=== PATIENT | female | born 1985 | race African-American/Black ===

== ENCOUNTER 2025-01-05 07:45 | Outpatient (AMB) | payer OTHER, SELFPAY ==
--- OUTSIDE RECORDS SUMMARY | 2024-12-04 08:00 | XMS_ITS ---
Author Organization [facility] Address [address] [place] [address] Care Team Providers Care Segment Assembler Name Role Phone Provider, [place] Primary Care Provider REASON FOR VISIT Headache, panic attack Encounters Encounter Location Date Provider Diagnosis [facility] [address] [place] [address] 12/04/2024 [facility] Provider Plan Of Treatment No Information Progress Notes * CARMENNga GILBERTDOB:[birth year] (39 yo F)Acc No.[id number]:12/04/2024 IMPORT Patient: Nga JORDAN Appointment Provider: Daniel byrne Provider :1985 A ge:39 Y S ex:Female Date:12/04/2024 Address:[address] [place], [place] [id number] Subjective: * Chief Complaints: * 1 . Headache, panic attack . * Medical History: Objective: * Vitals: Assessment: Plan: * Treatment: * Billing Information: * Visit Code: * Procedure Codes: * Electronic signature of Yumiko x Provider on 01/05/2025 at 07:48 AM EST Sign off status: Pending * Appointment Provider: Daniel byrne Provider Date: Generated for Ahsan osullivan/Ailyn/Tamikaitting on: 03/07/2024 07:48 AM EST
--- OUTSIDE RECORDS SUMMARY | 2025-01-05 07:48 | XMS_ITS | Patient Health Record ---
Author Organization [facility] Address [address] [place] [address] Care Team Providers Care Railway Head Tender Name Role Phone Provider, [facility] Primary Care Provider Reason For Referral No Information Plan Of Treatment No Information
--- OUTSIDE RECORDS SUMMARY | 2025-01-05 07:48 | XMS_ITS | Data Portability ---
Author Organization [place] [facility] [address] [place] [address] Assessment No assessment recorded. Plan of Treatment Reminders Order Date Submit Date Provider Last Modified By Organization Details Last Modified Time Details Appointments None recorded. Lab None recorded. Referral orthopedic foot/ankle surgeon referral 2021 [email or web address] Not available 08:53:10 Procedures None recorded. Surgeries None recorded. Imaging None recorded. Medication Orders None recorded. Patient TargetsNo targets recorded. Patient Instructions Encounter Date Encounter Id Patient Instructions Last Modified By Organization Details Last Modified Time 02/01/2022 [id number] learning about rice (rest, ice, compression, and elevation) [email or web address] Not available 02/01/2022 11:51:24 Reason for Referral Orthopedic Foot/ankle Surgeo n Referral for Sprain of right ankle Referring Physician: Juan Owen, Urgent Care, Encounter Date: 02/01/2022 Problems Name Problem SNOMED Code Status Onset Date Resolution Date Notes Provider Name and Address Organization Details Recorded Time Post-traum atic stress disorder 02747688 Active BEAU DRINKWINE null, [place] - [facility] 11:26:15 Anxiety 82125926 Active BEAU DRINKWINE null, [place] - [facility] 11:26:23 Problem Notes None recorded. Procedures Surgical History Date Name Laterality Status Provider Name and Address Organization Details Recorded Time 02/15/19 16 cholecystectomy completed BEAU DRINKWINE [place] - [facility] 02/01/2022 11:27:13 02/15/19 16 removal of product of conception of ectopic completed BEAU DRINKNILSE [place] - [facility] 02/01/2022 11:27:35 Imaging Results None recorded. Procedure Notes None recorded. Medical Equipment None Reported. Allergies Allergen ID Allergen Name Allergen Category Reaction Reaction Severity Criticality Documentation Date Start Date Code Code System Note Provider Name and Address Organization Details Recorded Time 06032 acetamino phen / oxycodone medicatio n hives itching Not available Not available Not available 02/01/2022 93485 3 RxNorm BEAU DRINKWINE null, [place] - [facility] 2 11:24:57 89951 egg extract food,medi cation facial swelling itching Not available Not available Not available 02/01/2022 08056 15 RxNorm BEAU DRINKWINE null, [place] - [facility] 2 11:25:12 50399 morphine medicatio n itching rash Not available Not available Not available 02/01/2022 7052 RxNorm BEAU DRINKWINE null, [place] - [facility] 2 11:25:32 Medications Not known to be on any medication Vitals Date Recorded Body height Body mass index (BMI) Body weight Pain severity - 0-10 verbal numeric rating [Score] - Reported Body temperature Respiratory rate Heart rate Oxygen saturation Systolic And Diastolic Provider Name and Address Organization Details Last Updated DateTime 2 157.48 cm 34.8 kg/m2 80407.5 5 g 5 98.7 [degF] 16 /min 106 /min 100 % 134/82 mm[Hg] BEAU DRINKWINE [place] - [facility] 2 11:32:31 Social History Question Answer Notes LastModified by [employer] Details LastModified Time Tobacco Smoking Status Current Every Day Smoker BEAU DRINKNILSE null, [place] - [facility] 02/01/2022 11:28:53 Have You Recently Traveled Abroad? No Information not available 02/01/2022 Sex: Unknown Functional Status Question Answer Note LastModified by [employer] Details LastModified Time Do you use any illicit or recreational drugs? No Information not available 02/01/2022 Do you or have you ever used any other forms of tobacco or nicotine? No Information not available 02/01/2022 Mental Status None recorded. Family History Relationship Description Onset Age of this Age Resolved Age Notes LastModified by Organization Details LastModified Time Father No current problems or disability [email or web address] Not available 01/15 11:26:48 Mother No current problems or disability [email or web address] Not available 01/15 11:26:48 Medical History No medical history recorded. Gynecological HistoryNo gynecological history recorded. Obstetrics History GPAL:G 0 P 0 0 0 0 Immunizations Vaccine Type Date Status Note Provider Nam e and Address Organization Details Recorded Time Tdap 7 completed BEAU DRINKWINE null, [place] - [facility] 02/01/2022 11:24:07 Influenza, split virus, quadrivalent, preservative 7 completed BEAU DRINKWINE null, [place] - [facility] 02/01/2022 11:24:07 Influenza, split virus, trivalent, preservative 1 completed BEAU DRINKWINE null, [place] - [facility] 02/01/2022 11:24:07 Past Encounters Encounter ID Performer Location Encounter Start Date Encounter Closed Date Diagnosis/Indication Diagnosis SNOMED-CT Code Diagnosis ICD10 Code Diagnosis IMO Codes Diagnosis Note [id number] [address] [address] [place] [address] 07/28/2021 12:01:45 07/28/2021 14:41:52 [id number] [address] [facility] [address] [place] [phone] 05/08/2021 14:10:08 05/08/2021 15:59:26 [id number] Juan Owen, DO [address] [place] [address] 02/01/2022 08:44:53 02/01/2022 11:53:07 Sprain of right ankle [id number] 4848177 S93.401A resticeele vationcomp ression with BARB bandageibu (she has at home)No weight bearing x 2 dunable to image here as no XRAYadvise d to go to [facility] clinic at [facility] tomorrow for a formal evaluation and imaging Health Concerns Section Related Observation LastModified by Organization Detai ls LastModified Time None Recorded Concern Status LastModified by Organization Details LastModified Time None Recorded Advance Directives Directive None Recorded Payers Insurance Date Sequence Insurance Name Policy Number Policy Donahue Covered Member ID Donahue Member ID Guarantor Name 02/01/2022 1 [facility] (MEDICAID REPLACEMENT - HMO) [id number] Nga Kaiser [id number] Nga Kaiser 02/01/2022 1 [facility] (MEDICAID REPLACEMENT - HMO) [id number] Nga Kaiser [id number] Nga Kaiser 02/01/2022 1 MEDICAID-[place]: [facility] Nga Kaiser [id number] Nga Kaiser Notes Date Note Type Note Provider Name and Address Organization Details Recorded Time 02/01/2022 text/html ROS as noted in the HPI 36 yo femaleRolled right ankle 4 days ago, shooting pain since. + swellingno rednessno rashno bruisingno numbnessno tinglingno weakness+ pain with ambulation tried ibu 800 mg and elevationstill has pain Juan Owen, DO [address] [place], [address], [place] [facility] 02/01/2022 11:56:49 OBGyn Episode No OBEpisode recorded.
--- OUTSIDE RECORDS SUMMARY | 2025-01-05 07:48 | XMS_ITS | Clinical Summary ---
Author Organization [facility] ity Address [address] [place] [address] Care Team Providers Care Trust Vault Custodian Name Role Phone Unavailable Primary Care Provider Unavailabl e Social History Tobacco Use Types Packs/Day Years Used Date Smoking Tobacco: Never Assessed Comments Unknown Sex and Gender Information Value Date Recorded Sex Assigned at Not on file Legal Sex Female 11:58 PM EST Gender Identity Not on file Sexual Orientation Not on file Plan of Treatment Health Maintenance Due Date Last Done Comments Breast Cancer Screening 1983 DTaP,Tdap,and Td Vaccines (1 - Tdap) 2002 Hepatitis B Vaccines (1 of 3 - 19+ 3-dose series) 2002 Cervical Cancer Screening: P ap Smear 2004 HPV Vaccines (1 - 3-dose SCD M series) 2010 Depression Screening 02/16/2024 COVID-19 Vaccine ( - 2024-2 6 season) 2024 Influenza Vaccine (#1) 2024 RSV Immunization Adult Patie nts (1 - 1-dose 75+ series) 2058 HIB Vaccines Aged Out No longer eligi ble based on patient's age to complete this topic Hepatitis A Vaccines Aged Out No long er eligible based on patient's age to complete this topic IPV Vaccines Aged Out No longer eligi ble based on patient's age to complete this topic MMR Vaccines Aged Out No longer eligi ble based on patient's age to complete this topic Meningococcal ACWY Vaccine Aged Out N o longer eligible based on patient's age to complete this topic Meningococcal B Vaccine Aged Out No l onger eligible based on patient's age to complete this topic Pneumococcal Vaccine: Pediat rics (0 to 5 Years) and At-Risk Patients (6 to 49 Years) Aged Out No longer eligible b ased on patient's age to complete this topic RSV Immunization Patients Un manuelito 20 months Aged Out No longer eligible b ased on patient's age to complete this topic Varicella Vaccines Aged Out No longer eligible based on patient's age to complete this topic
--- OUTSIDE RECORDS SUMMARY | 2025-01-05 07:48 | XMS_ITS | Clinical Summary ---
Author Organization [employer] Address [address] [place] [address] [address] [place] [address] Care Team Providers Care Four H Club Agent Name Role Phone Unavailable Primary Care Provider Unavailabl e Allergies Active Allergy Reactions Criticality Noted Date Comments Egg Protein-Containing Drug Products 06/10/2022 Morphine And Codeine 06/10/2022 Oxycodone-Acetaminophen 06/10/2022 Medications No known medications Social History Tobacco Use Types Packs/Day Years Used Date Smoking Tobacco: Never Assessed Comments Unknown Sex and Gender Information Value Date Recorded Sex Assigned at Female 06/10/2022 2:51 PM EDT Legal Sex Female 2:46 PM EDT Gender Identity Female 06/10/2022 2:51 PM EDT Sexual Orientation Straight 06/10/2022 2: 51 PM EDT Plan of Treatment Health Maintenance Due Date Last Done Comments Dental Oral Exam 1983 Dental Prophylaxis 1983 Dental X-Ray: Full Mouth 1983 Depression Screening 1983 HIV Screening 1983 SDOH Screening 1983 Disability Screening 1983 Alcohol/Substance Use Screening 1995 Tobacco Screening 1995 Family Planning (PISQ) 1998 HPV Vaccines (1 - 3-dose series) 1998 Hepatitis C Screening 2001 Hepatitis B Vaccines (1 of 3 - 19+ 3-dose series) 2002 Pap Smear 2004 Cervical Cancer Screening 2013 HPV/Cotest 2013 Mammogram 2023 Dental X-Ray: Bitewings 11/04/2023 11/03/19, 06/10/2022 COVID-19 Vaccine ( - 2024-2 6 season) 2024 Influenza Vaccine (#1) 2024 7, 12/01/2010 DTaP/Tdap/Td Vaccines (2 - T d or Tdap) 04/03/2026 04/03/2016 Zoster Vaccines (1 of 2) 2033 RSV Patients and Patients Aged 60 years or older (1 - 1-dose 75+ series) 2058 HIB [...] patient's age to complete this topic Meningococcal Vaccine Aged Out No tina melonie eligible based on patient's age to complete this topic Pneumococcal Vaccine: Pediatrics (0 to 5 Years) and At-Risk Patients (6 to 49) Years Aged Out No longer eligible b ased on patient's age to complete this topic RSV under 20 months Aged Out No longe r eligible based on patient's age to complete this topic Rotavirus Vaccines Aged Out No longer eligible based on patient's age to complete this topic Procedures Procedure Name Priority Date/Time Associated Diagnosis Comments BITEWING - SINGLE RADIOGRAPHIC IMAGE Routine 11/02/2022 4:00 PM EDT from Last 3 Months or Most Recently Relevant to Health Maintenance Insurance [facility]ICA[facility] [place] [id number]
[2025-01-05 07:50] VITALS: BP 116/60; PULSE 96; TEMP 36.8; O2SAT 99; BMI 51.2
--- NOTE | 2025-01-05 07:50 | AM.OFFWIN_ITS ---
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 Patient was seen at [facility] last month & was told it was a sinus infection & prescribed ABX, which has not helped. Patient using OTC cold medication but finds minimal relief unless she takes more than recommended dose. Allergies No Known Allergies (No Known Allergies*) Allergy (Unverified 01/05/25 08:00) paroxetine Adverse Reaction (Unknown, Verified 01/05/25 08:00) DRY MOUTH HPI HPI Comments History of Present Illness Details History - The patient is a 39 year old individua l presenting with persistent left sided sinus pain and pressure that goes from her cheek to the top of her head. - The patient reports experiencing sinus pain for the last three to four months, initially treated with amoxicillin without relief. - Subsequent antibiotic treatment provid ed temporary relief, but symptoms recurred, exacerbated by missed doses and a hectic schedule. - The patient has been using Flonase and [id number]-yummmuo medications with limited success. - The patient reports a severe episode o f pain last night, describing it as intense and affecting the ability to lift the head. - The patient has a history of nasal debra yps, which can become irritated and worsen the pain. - The patient has not seen an ear, nose, and throat specialist and has not been taking a daily allergy pill. - The patient denies fever but reports a sporadic dry cough. Review of Systems Narrative Review of Systems - Respiratory: Denies congestion, reports sporadic dry cough. - ENT: Reports persistent sinus pain, nasal polyps irritation, denies fever. - General: Denies fever, reports intense sinus pain affecting daily activities. All systems reviewed and are unremarkable except as noted in HPI Physical Exam Exam Exam: Physical Exam General: Cooperative, healthy appearing, comfortable and no acute distress Orientation/consciousness: Patient oriented x3 Limitations: No limitations Head: Normal to inspection Ears: Hearing grossly normal bilaterally, external ears normal, EAC's normal bilaterally and TM's with slight erythema Nose: Normal external nose present, Normal nares present and No nasal discharge present Face and sinus: Normal facial exam and bilateral maxillary sinuses tender Mouth: Normal oral and palatal mucosa present and moist mucous membranes Throat: tonsils normal, no exudates, uvula midline, posterior oropharynx erythema Eyes: Appearance normal, both eyes and all related structures Neck: Normal visual inspection, full ROM Respiratory: Normal respiratory effort, able to speak in complete sentences, no coughing, no congestion, no respiratory distress, not tachypneic, no tripod positioning and no use of accessory muscles Skin: No rashes or lesions noted Neuro: Patient oriented x3 Extremities: Normal to inspection and Yes no clubbing, cyanosis or edema Vital Signs: Last Vital Signs Temp 98.3 F 01/05/25 07:50 Pulse 96 01/05/25 07:50 BP 116/60 01/05/25 07:50 Pulse Ox 99 01/05/25 07:50 Oxygen Delivery Method Room Air 01/05/25 07:50 BMI result Body Mass Index 51.2 Assessment & Plan Assessment & Plan (1) Acute viral sinusitis: Code(s): J01.90 - Acute sinusitis, unspecified; B97.89 - Other viral agents as the cause of diseases classified elsewhere Plan Patient was informed and verbally consented to the use of an ambient scribe for clinic note documentation during this visit. - VSS, pt well appearing and PE remarkable for bilateral maxillary sinus tenderness. - Plan includes using a Neti pot with distilled water twice daily to rinse sinuses. - Continue using Flonase with proper technique to alleviate symptoms. - Prescribed a five-day course of oral prednisone to reduce inflammation and pressure. - Recommended starting a daily allergy pill such as [place] or Claritin, to be taken at night. Medications: New prednisone 40 mg (2 x 20 mg) PO QAM 10 tabs 0RF Coding Level of Care Code Est Pt Level 3 (41876) Diagnoses Acute viral sinusitis J01.90; B97.89
== END 2025-01-05 08:18 | disposition home or self-care (01) ==
PROVIDERS: PCP Nurse Practitioner Family; Visit Provider Physician Assistant
DX: J01.90 Acute sinusitis, unspecified (principal); B97.89 Other viral agents as the cause of diseases classified elsewhere